=== PATIENT | female | born 2000 | race African-American/Black ===

== ENCOUNTER 2019-11-10 16:53 | Emergency (ER) | payer BC, SELFPAY ==
[2019-11-10 17:41] VITALS: BP 124/75; PULSE 79; RESP 14; TEMP 36.5; O2SAT 100
[2019-11-10 18:05] LABS: Basophils Percent Auto 0.6 % (0.2-1.2); Eosinophils Absolute Auto 0.1 K/mm3 (0-0.3); Eosinophils Percent Auto 1.2 % (0-4.4); Hematocrit 38.1 % (37.0-47.0); Hemoglobin 12.5 g/dL (12.0-15.0); Immature Granulocyte Absolute 0.01 K/mm3 (0.00-0.031); Immature Granulocyte Percent A 0.2 % (0-0.5); Lymphocytes Percent Auto 39.7 % (18.3-44.2); Mean Corpuscular HGB Conc 32.8 g/dl (32-36); Mean Corpuscular Hemoglobin 27.8 pg (26-34); Mean Corpuscular Volume 84.9 fl (80-100); Monocytes Absolute Auto 0.3 K/mm3 (0.1-0.6); Monocytes Percent Auto 4.7 % (2.6-8.5); Neutrophils Absolute Auto 3.5 K/mm3 (1.3-6.7); Neutrophils Percent Auto 53.6 % (45.5-73.1); Platelet Count Result 340 k/mm3 (150-375); Red Blood Count 4.49 M/mm3 (4.2-5.4); Red Cell Distribution Width 15.3 % (11.5-14.5); White Blood Count 6.6 K/mm3 (4.5-10.0)
--- NOTE | 2019-11-10 19:37 | PC.NURSE ---
first call for room assignment, pt did not respond.
[2019-11-10 20:38] VITALS: BP 114/62; PULSE 51
[2019-11-10 20:39] VITALS: PULSE 48
[2019-11-10 20:41] VITALS: BP 125/87; PULSE 55
--- NOTE | 2019-11-10 20:55 | ED.FEMALEGU ---
HPI - Female Genitourinary General Chief complaint: Vaginal Bleeding Stated complaint: having lots of blod clots Time Seen by Provider: 11/10/19 20:19 History of Present Illness HPI Narrative: Patient is a 19-year-old female who presents ER with heavy vaginal bleeding. Reports she has been passing clots the size of a nickel or larger over the last day. She soaks through a 12-hour pad just a couple of hours this evening. No lightheadedness or dizziness. Reports that she had similar symptoms in August and September and then had a normal period October 19. She is on control. Does not think that she is . No lower abdominal pain just her to cramping. Mother is present and is concerned about patient's constipation. She reports she goes in very small amounts over the last month and has been eating less due to being depressed from relationship that ended but she has recently stopped being depressed and has started eating better. No thoughts of harming herself or others. Related Data Allergies Allergy/AdvReac Type Severity Reaction Status Date / Time No Known Allergies Allergy Mild Verified 11/10/19 16:54 Review of Systems Review of Systems: All systems reviewed & are unremarkable except as noted in HPI and below Constitutional: Constitutional: Denies chills and Denies fatigue Gastrointestinal: Gastrointestinal: Denies abdominal pain, Reports constipation, Denies nausea and Denies vomiting Genitourinary: Genitourinary: Reports abnormal vaginal bleeding, Denies genital lesions, Denies pelvic pain and Denies vaginal discharge Psychiatric: Psychiatric: Denies anxiety and Reports depression (Resolved) PMFSH Past Medical History Medical History (Updated 11/10/19 @ 21:26 by Marcelo Lee MD) Healthy female adult Surgical History Surgical History (Updated 11/10/19 @ 21:11 by Marcelo Lee MD) Hx of tonsillectomy Social History Social History (Updated 11/10/19 @ 21:11 by Marcelo Lee MD) Smoking status: Never smoker Gender identity (if verbalized by the patient): Female Exam Narrative: Exam Narrative: GENERAL: Well-appearing, well-nourished, and in no acute distress. HEAD: Normocephalic, atraumatic. CHEST: Clear to auscultation. No respiratory distress. HEART: Regular rate and rhythm. Normal peripheral pulses. ABDOMEN: Soft, nontender, nondistended. Pelvic: Normal external genital exam. Mild amount of dark blood within the vaginal vault. No hemorrhage from the cervix. No cervical erythema or CMT. No discharge. EXTREMITIES: Normal range of motion. No edema. NEURO: Alert and oriented x3. Course Course Emergency Course: Informed of results and treatment plan. Discharge home. Vital Signs Vital signs: Vital Signs Temperature 97.7 F 11/10/19 17:41 Pulse Rate 79 11/10/19 17:41 Respiratory Rate 14 11/10/19 17:41 Blood Pressure 124/75 11/10/19 17:41 Pulse Oximetry 100 11/10/19 17:41 Temperature 97.7 F 11/10/19 17:41 Pulse Rate 55 L 11/10/19 20:41 Respiratory Rate 14 11/10/19 17:41 Blood Pressure 125/87 11/10/19 20:41 Pulse Oximetry 100 11/10/19 17:41 MDM - Female Genitourinary Lab Data Result diagrams: 11/10/19 17:58 Labs: Lab Results 11/10/19 11/10/19 Range/Units 17:58 17:58 WBC 6.6 (4.5-10.0) K/mm3 RBC 4.49 (4.2-5.4) M/mm3 Hgb 12.5 (12.0-15.0) g/dL Hct 38.1 (37.0-47.0) % MCV 84.9 (80-100) fl MCH 27.8 (26-34) pg MCHC 32.8 (32-36) g/dl RDW 15.3 H (11.5-14.5) % Plt Count 340 (150-375) k/mm3 MPV 9.0 (7.4-10.4) fl Immature Gran % (Auto) 0.2 (0-0.5) % Neut % (Auto) 53.6 (45.5-73.1) % Lymph % (Auto) 39.7 (18.3-44.2) % [place] % (Auto) 4.7 (2.6-8.5) % Eos % (Auto) 1.2 (0-4.4) % Baso % (Auto) 0.6 (0.2-1.2) % Lymph # (Auto) 2.60 (0.9-3.2) K/mm3 [place] # (Auto) 0.3 (0.1-0.6) K/mm3 Eos # (Auto) 0.1 (0-0.3) K/mm3 Baso # (Auto) 0.0 (0.0-0.1) K/mm3 Abs Pepper
[2019-11-10] MEDS: SODIUM CHLORIDE 0.9% IV 1,000 ML 999 ML IV CONT (21:06)
[2019-11-10 22:30] VITALS: BP 115/66; PULSE 51; RESP 16; O2SAT 100
== END 2019-11-10 22:40 | disposition home or self-care (01) ==
PROVIDERS: Emergency Provider Emergency Medicine
DX: N92.1 Excessive and frequent menstruation with irregular cycle (principal)
CPT/HCPCS: 36415; 81025; 85025; 86850; 86900; 86901; 96360; 99284; J7030

== ENCOUNTER 2022-03-23 07:58 | Emergency (ER) | payer BC, SELFPAY ==
[2022-03-23 08:05] VITALS: BP 95/61; PULSE 62; RESP 18; TEMP 36.6; O2SAT 100
[2022-03-23 08:09] VITALS: O2SAT 99
--- NOTE | 2022-03-23 08:43 | ED.GENADULT ---
HPI - General Adult General Chief complaint: Upper Respiratory Infection Stated complaint: sore throat and weakness that began this AM Time Seen by Provider: 03/23/22 08:21 Related Data Allergies Allergy/AdvReac Type Severity Reaction Status Date / Time No Known Allergies Allergy Mild Verified 03/23/22 07:59 [facility] Past Medical History Medical History (Updated 11/12/19 @ 00:00 by Telly Thrasher) Healthy female adult Surgical History Surgical History (Updated 11/10/19 @ 21:11 by Marcelo Lee MD) Hx of tonsillectomy Social History Social History (Updated 11/10/19 @ 21:11 by Marcelo Lee MD) Smoking status: Never smoker Gender identity (if verbalized by the patient): Female Course Vital Signs Vital signs: Vital Signs Temperature 97.9 F 03/23/22 08:05 Pulse Rate 62 03/23/22 08:05 Respiratory Rate 18 03/23/22 08:05 Blood Pressure 95/61 L 03/23/22 08:05 Pulse Oximetry 100 03/23/22 08:05 Oxygen Delivery Room Air 03/23/22 08:05 Temperature 97.9 F 03/23/22 08:05 Pulse Rate 62 03/23/22 08:05 Respiratory Rate 18 03/23/22 08:05 Blood Pressure 95/61 L 03/23/22 08:05 Pulse Oximetry 99 03/23/22 08:09 Oxygen Delivery Room Air 03/23/22 08:09 Medical Decision Making Vital Signs Vital Signs: Vital Signs Temperature 97.9 F 03/23/22 08:05 Pulse Rate 62 03/23/22 08:05 Respiratory Rate 18 03/23/22 08:05 Blood Pressure 95/61 L 03/23/22 08:05 Pulse Oximetry 100 03/23/22 08:05 Oxygen Delivery Room Air 03/23/22 08:05 Temperature 97.9 F 03/23/22 08:05 Pulse Rate 62 03/23/22 08:05 Respiratory Rate 18 03/23/22 08:05 Blood Pressure 95/61 L 03/23/22 08:05 Pulse Oximetry 99 03/23/22 08:09 Oxygen Delivery Room Air 03/23/22 08:09 Discharge Plan Discharge Prescriptions: No Action Midol 500-25 mg tablet 1 tablet PO QID PRN (Reason: menstrual pain) Qty: 20 0RF ibuprofen 800 mg tablet 800 mg PO TID Qty: 20 0RF docusate sodium [Colace] 100 mg capsule 100 mg PO DAILY Qty: 20 0RF Follow-up/Referrals: PHYSICIAN,TONGUE AND GROOVE MACHINE OPERATOR [Primary Care Provider] -
--- NOTE | 2022-03-23 08:54 | ED.GENADULT ---
HPI - General Adult General Chief complaint: Upper Respiratory Infection Stated complaint: sore throat and weakness that began this AM Time Seen by Provider: 03/23/22 08:21 History of Present Illness HPI narrative: 21-year-old well-appearing female presents with multiple complaints. Patient states that while waiting for the bus to go to work this morning she noticed body aches, sore throat, ear pain and feeling very tired . No sick contacts that she knows of. Patient is not vaccinated for COVID. Patient also admits that sometimes it sim when she pees. Patient is afebrile. Related Data Allergies Allergy/AdvReac Type Severity Reaction Status Date / Time No Known Allergies Allergy Mild Verified 03/23/22 07:59 Review of Systems Review of Systems: CONSTITUTIONAL: Denies fever, chills, or sweats. EYES: Denies visual changes, redness, or discharge. ENT: Denies rhinorrhea, congestion, sore throat, or otalgia. CARDIOVASCULAR: Denies chest pain, palpitations, or edema. RESPIRATORY: Denies cough or dyspnea. GASTROINTESTINAL: Denies abdominal pain, nausea, vomiting, or diarrhea. GENITOURINARY: Denies dysuria or hematuria. SKIN: Denies rash or itching. MUSCULOSKELETAL: Denies back pain, joint pain, or myalgia. NEUROLOGIC: Denies headache, numbness, or weakness. PSYCHIATRIC: Denies anxiety or depression. [facility] Past Medical History Medical History (Updated 11/12/19 @ 00:00 by Background Daemon) Healthy female adult Surgical History Surgical History (Updated 11/10/19 @ 21:11 by Marcelo Lee MD) Hx of tonsillectomy Social History Social History (Updated 11/10/19 @ 21:11 by Marcelo Lee MD) Smoking status: Never smoker Gender identity (if verbalized by the patient): Female Exam Narrative: GENERAL: Well-appearing, well-nourished, and in no acute distress. HEAD: Normocephalic, atraumatic. EYES: PERRLA and EOMI. ENT: Nares clear, no rhinorrhea or epistaxis. Mucous membranes moist. NECK: Supple. CHEST: Clear to auscultation. No respiratory distress. HEART: Regular rate and rhythm. No murmur heard. Normal peripheral pulses. ABDOMEN: Soft, nontender, nondistended, normal active bowel sounds. EXTREMITIES: Normal range of motion. No edema. SKIN: Warm, dry, no rash. NEURO: No focal deficits. Alert and oriented x3. PSYCH: Normal mood and affect. Course Vital Signs Vital signs: Vital Signs Temperature 97.9 F 03/23/22 08:05 Pulse Rate 62 03/23/22 08:05 Respiratory Rate 18 03/23/22 08:05 Blood Pressure 95/61 L 03/23/22 08:05 Pulse Oximetry 100 03/23/22 08:05 Oxygen Delivery Room Air 03/23/22 08:05 Temperature 97.9 F 03/23/22 08:05 Pulse Rate 62 03/23/22 08:05 Respiratory Rate 18 03/23/22 08:05 Blood Pressure 95/61 L 03/23/22 08:05 Pulse Oximetry 99 03/23/22 08:09 Oxygen Delivery Room Air 03/23/22 08:09 Medical Decision Making Vital Signs Vital Signs: Vital Signs Temperature 97.9 F 03/23/22 08:05 Pulse Rate 62 03/23/22 08:05 Respiratory Rate 18 03/23/22 08:05 Blood Pressure 95/61 L 03/23/22 08:05 Pulse Oximetry 100 03/23/22 08:05 Oxygen Delivery Room Air 03/23/22 08:05 Temperature 97.9 F 03/23/22 08:05 Pulse Rate 62 03/23/22 08:05 Respiratory Rate 18 03/23/22 08:05 Blood Pressure 95/61 L 03/23/22 08:05 Pulse Oximetry 99 03/23/22 08:09 Oxygen Delivery Room Air 03/23/22 08:09 Discharge Plan Discharge Prescriptions: No Action Midol 500-25 mg tablet 1 tablet PO QID PRN (Reason: menstrual pain) Qty: 20 0RF ibuprofen 800 mg tablet 800 mg PO TID Qty: 20 0RF docusate sodium [Colace] 100 mg capsule 100 mg PO DAILY Qty: 20 0RF Follow-up/Referrals: PHYSICIAN,RETAIL GROCER [Primary Care Provider] -
[2022-03-23 09:18] LABS: Appearance Urine Clear (Clear); Bilirubin Urine 1+ (Negative); Blood Urine 1+ (Negative); Glucose Urine UA Negative (Negative); Ketones Urine 1+ mg/dL (Negative); Leukocyte Esterase Ur Negative LEU/UL (Negative); Nitrate Urine Negative (Negative); Protein Urine 1+ mg/dL (Negative); Specific Grav Ur >= 1.030 (1.001-1.035); Urobilinogen Urine 0.2 mg/dL (<2.0); pH Urine 5.5 (5.0-9.0)
[2022-03-23 09:24] LABS: Bacteria Urine Trace /hpf; Mucus Urine Heavy /lpf; RBC Urine 0-2 /hpf (0-2); Squamous Epithelial Cell Urine Rare /hpf (Few); WBC Urine 0-3 /hpf
[2022-03-23 09:25] LABS: Add Urine Microscopic? YES; Color Urine Dark Yellow (Yellow)
[2022-03-23 09:53] VITALS: BP 103/53; PULSE 60; RESP 18; O2SAT 100
[2022-03-23 09:59] LABS: SARS-CoV-2 RNA PCR Negative
[2022-03-23 10:45] VITALS: BP 96/50; PULSE 60; RESP 18; O2SAT 99
== END 2022-03-23 10:45 | disposition home or self-care (01) ==
PROVIDERS: Emergency Provider Emergency Medicine
DX: B34.9 Viral infection, unspecified (principal); Z20.822 Contact with and (suspected) exposure to COVID-19; Z28.310 Unvaccinated for COVID-19
CPT/HCPCS: 81001; 99283; U0003; U0005

== ENCOUNTER 2022-04-07 05:18 | Emergency (ER) | payer BC, SELFPAY ==
--- NOTE | ~2022-04-07 | XR_ITS ---
EXAMINATION: XR chest 1V portable DATE: 04/07/2022 06:55 INDICATION: Cough TECHNIQUE: frontal view of the chest was obtained. COMPARISON: None FINDINGS: The lungs are clear with no focal airspace opacities, pulmonary edema, pleural effusion or pneumothor ax. The cardiomediastinal silhouette is normal. Visualized bones and soft tissues are unremarkable. IMPRESSION: 1. Normal chest radiograph. Reviewed, dictated and finalized at location A. [employer] SYSTEM[employer] MANAGER IMPRESSION: 1. Normal chest radiograph.
[2022-04-07 05:22] VITALS: BP 101/62; PULSE 95; RESP 18; TEMP 36.1; O2SAT 99
--- NOTE | 2022-04-07 05:55 | ED.GENADULT ---
HPI - General Adult General Chief complaint: Headache Stated complaint: Headache Time Seen by Provider: 04/07/22 05:33 History of Present Illness HPI narrative: Patient is a 21-year-old female that presents emerged department with a chief complaint of headache. Patient reports that she was seen in the emergency department several days ago for cough body aches and generalized malaise had a COVID test that was negative at that time and diagnosed with a viral illness. The patient states that today she was on her way to work and noticed that she started developing headache. Patient states that several months ago she struck her head and is concerned that this may be the cause of her headaches. The patient reported no previous head injury she had no loss of consciousness reports no focal neurological deficit after the injury. The patient reports that today she has been continually coughing has been nonproductive patient denies photophobia Related Data Allergies Allergy/AdvReac Type Severity Reaction Status Date / Time No Known Allergies Allergy Mild Verified 04/07/22 05:25 Review of Systems Review of Systems: A 10 system review of systems was completed on the patient and is negative except for what is stated in the HPI. Nursing and ancillary documentation was reviewed. [facility] Past Medical History Medical History Healthy female adult Surgical History Surgical History Hx of tonsillectomy Social History Social History Smoking status: Never smoker Gender identity (if verbalized by the patient): Female Exam Narrative: GENERAL: Well-appearing, well-nourished, and in no acute distress. HEAD: Normocephalic, atraumatic. EYES: PERRLA and EOMI. ENT: Nares clear, no rhinorrhea or epistaxis. Mucous membranes moist. NECK: Supple. No nuchal rigidity or meningeal sign CHEST: Clear to auscultation. No respiratory distress. HEART: Regular rate and rhythm. No murmur heard. Normal peripheral pulses. ABDOMEN: Soft, nontender, nondistended, normal active bowel sounds. EXTREMITIES: Normal range of motion. No edema. SKIN: Warm, dry, no rash. NEURO: No focal deficits. Alert and oriented x3. PSYCH: Normal mood and affect. Course Vital Signs Vital signs: Vital Signs Temperature 36.1 C L 04/07/22 05:22 Pulse Rate 95 04/07/22 05:22 Respiratory Rate 18 04/07/22 05:22 Blood Pressure 101/62 04/07/22 05:22 Pulse Oximetry 99 04/07/22 05:22 Oxygen Delivery Room Air 04/07/22 05:22 Temperature 36.1 C L 04/07/22 05:22 Pulse Rate 95 04/07/22 05:22 Respiratory Rate 18 04/07/22 05:22 Blood Pressure 101/62 04/07/22 05:22 Pulse Oximetry 99 04/07/22 05:22 Oxygen Delivery Room Air 04/07/22 05:22 Medical Decision Making Vital Signs Vital Signs: Vital Signs Temperature 36.1 C L 04/07/22 05:22 Pulse Rate 95 04/07/22 05:22 Respiratory Rate 18 04/07/22 05:22 Blood Pressure 101/62 04/07/22 05:22 Pulse Oximetry 99 04/07/22 05:22 Oxygen Delivery Room Air 04/07/22 05:22 Temperature 36.1 C L 04/07/22 05:22 Pulse Rate 95 04/07/22 05:22 Respiratory Rate 18 04/07/22 05:22 Blood Pressure 101/62 04/07/22 05:22 Pulse Oximetry 99 04/07/22 05:22 Oxygen Delivery Room Air 04/07/22 05:22 Lab Data Labs: Lab Results 04/07/22 04/07/22 Range/Units 05:49 05:49 Influenza A (RT-PCR) Negative (Negative) Influenza B (RT-PCR) Negative (Negative) SARS-CoV-2 RNA (RT-PCR) Negative Group A Strep (PCR) Not detected (Negative) Discharge Plan Discharge Clinical Impression: Headache, Acute viral syndrome Patient Disposition: Home, Self-Care Condition: Stable Instructions: Antibiotic Form, Acute Headache (ED), Viral Syndrome (ED) Prescriptions: No A
[2022-04-07] MEDS: PROCHLORPERAZINE EDISYLATE 10 MG/2 ML VIAL IV PUSH (06:15)
[2022-04-07] MEDS: KETOROLAC 30 MG/ML VIAL (*BKC) IV PUSH (06:16)
[2022-04-07] MEDS: diphenhydrAMINE HCl INJ 50 MG/ML VIAL IV PUSH (06:16)
--- NOTE | 2022-04-07 06:23 | PC.NURSE ---
Pt denies cough today, states no nausea today, and during assessment reports headache now 6/10 and improving prior to medication. ERP notified.
[2022-04-07 06:40] LABS: Strep Group A RT-PCR NOT DETECTED (Negative)
[2022-04-07 06:50] LABS: Influenza A QL RT-PCR Negative (Negative); Influenza B QL RT-PCR Negative (Negative); SARS-CoV-2 RNA PCR Negative
== END 2022-04-07 07:03 | disposition home or self-care (01) ==
PROVIDERS: Emergency Provider Emergency Medicine
DX: B34.9 Viral infection, unspecified (principal); R51.9 Headache, unspecified; Z20.822 Contact with and (suspected) exposure to COVID-19
CPT/HCPCS: 71045; 87636; 87651; 96374; 96375; 99284; J0780; J1200; J1885

== ENCOUNTER 2022-12-09 01:07 | Emergency (ER) | payer BC, SELFPAY ==
[2022-12-09 01:17] VITALS: BP 113/83; PULSE 114; RESP 16; TEMP 37.1; O2SAT 100
[2022-12-09 02:15] LABS: Basophils Percent Auto 0.2 % (0.2-1.2); Eosinophils Absolute Auto 0.1 K/mm3 (0-0.3); Eosinophils Percent Auto 1.4 % (0-4.4); Hematocrit 36.5 % (37.0-47.0); Hemoglobin 11.8 g/dL (12.0-15.0); Immature Granulocyte Absolute 0.02 K/mm3 (0.00-0.031); Immature Granulocyte Percent A 0.2 % (0-0.5); Lymphocytes Absolute Auto 3.21 K/mm3 (0.9-3.2); Lymphocytes Percent Auto 38.8 % (18.3-44.2); Mean Corpuscular HGB Conc 32.3 g/dl (32-36); Mean Corpuscular Hemoglobin 28.9 pg (26-34); Mean Corpuscular Volume 89.5 fl (80-100); Mean Platelet Volume 8.6 fl (7.4-10.4); Monocytes Absolute Auto 0.5 K/mm3 (0.1-0.6); Monocytes Percent Auto 5.4 % (2.6-8.5); Neutrophils Absolute Auto 4.5 K/mm3 (1.3-6.7); Platelet Count Result 310 k/mm3 (150-375); Red Blood Count 4.08 M/mm3 (4.2-5.4); Red Cell Distribution Width 14.5 % (11.5-14.5); White Blood Count 8.3 K/mm3 (4.5-10.0)
[2022-12-09 02:22] LABS: Alanine Aminotransferase 16 U/L (6-35); Albumin Level 4.4 g/dL (3.5-5.1); Alkaline Phosphatase 102 U/L (38-126); Anion Gap 9 mmol/L (8-16); Aspartate Amino Transferase 21 U/L (14-36); Bilirubin,Total 0.3 mg/dL (0.2-1.3); Blood Urea Nitrogen 16 mg/dL (7-17); Calcium 10.7 mg/dL (8.4-10.2); Carbon Dioxide 22 mmol/L (22-30); Chloride 104 mmol/L (98-107); Estimated CRCL calculation 93 ml/min; Estimated Glomerular Filt Rate > 60; Glucose 83 mg/dL (65-110); Potassium 3.5 mmol/L (3.4-5.0); Sodium 135 mmol/L (137-145)
[2022-12-09 02:23] LABS: Ethanol < 10 mg/dL (<10)
[2022-12-09 02:26] LABS: Acetaminophen < 10 ug/mL (10-30); Salicylate < 1.0 mg/dL (2-20)
[2022-12-09 02:29] LABS: Appearance Urine Cloudy (Clear); Bacteria Urine 4+ /hpf; Bilirubin Urine Negative (Negative); Blood Urine 3+ (Negative); Color Urine Yellow (Yellow); Glucose Urine UA Negative (Negative); Ketones Urine 1+ mg/dL (Negative); Leukocyte Esterase Ur 3+ LEU/UL (Negative); Need Manual Microscopic Reviewed; Nitrate Urine Negative (Negative); Protein Urine 1+ mg/dL (Negative); RBC Urine 21-50 /hpf (0-2); Squamous Epithelial Cell Urine Moderate /hpf (Few); WBC Urine >100 /hpf; pH Urine 5.5 (5.0-9.0)
[2022-12-09 02:30] LABS: Amphetamine Screen Urine Negative (Negative); Barbiturate Screen Urine Negative (Negative); Benzodiazepines Screen Urine Negative (Negative); Cannabinoid Screen Urine Positive (Negative); Cocaine Screen Urine Negative (Negative); Methadone Screen Urine Negative (Negative); Opiate Screen Urine Negative (Negative); Phencyclidine Screen Urine Negative (Negative)
[2022-12-09 02:31] LABS: Add Urine Microscopic? YES; Specific Grav Ur 1.038 (1.001-1.035)
--- NOTE | 2022-12-09 03:23 | ED.GENADULT ---
HPI - General Adult General Chief complaint: Psychiatric Symptoms Stated complaint: SI Time Seen by Provider: 12/09/22 01:40 Source: patient and RN notes reviewed Mode of arrival: ambulatory Limitations: no limitations History of Present Illness HPI narrative: This is a 22 year old female who presents for psychiatric evaluation. Patient states that yesterday her mother called the police on her because that got into an argument. She was arrest for an outstanding warrant and she was released yesterday at 1 pm. She states after she was released, she went back to her mother's house to get her work badge. She reports that her mother would not answer the door or the phone, and she thought she was in the living room. Patient states she was knocking on the door and her mother would not answer. She states then she walked away to go to her friend's house. Her friend did not answer so she went back to her mother's house. She reports on return to her mother's house, she noticed that door was open and window was broken. She thinks she broke the door down and broke the window but she does not remember. She states she smoked her vape pen and then had panic attack so she called EMS. She reports history in the past of going to a psych facility for having black out spells in which she does remember doing destructive things. She does not remember her diagnosis. She denies SI . She states she is angry at people but does not have place to harm anyone. Related Data Allergies Allergy/AdvReac Type Severity Reaction Status Date / Time No Known Allergies Allergy Mild Verified 04/07/22 05:25 Review of Systems Constitutional: Constitutional: Denies weakness Cardiovascular: Cardiovascular: Denies syncope, Denies rapid heart rate, Denies irregular heart rhythm, Denies leg edema and Denies dyspnea Respiratory: Respiratory: Denies chest congestion, Denies hemoptysis, Denies excessive phlegm production and Denies dyspnea Gastrointestinal: Gastrointestinal: Denies abdominal pain, Denies hematochezia, Denies diarrhea and Denies vomiting Genitourinary: Genitourinary: Denies hematuria and Denies dysuria Musculoskeletal: Musculoskeletal: Denies joint swelling, Denies loss of height and Denies muscle weakness Neurologic: Denies syncope, Denies focal weakness and Denies weakness PMFSH Past Medical History Medical History Healthy female adult Surgical History Surgical History Hx of tonsillectomy Social History Social History (Updated 12/09/22 @ 03:31 by Sara Tolliver MD) Tobacco type: e-cigarettes/vaping Substance use type: unknown Gender identity (if verbalized by the patient): Female Exam Const: General: no acute distress and alert Nutritional Appearance: well nourished Orientation/consciousness: patient oriented x3 Limitations: no limitations HENMT: Head: normal to inspection Face and sinus: normal facial exam Eyes: EOM: EOMs intact bilaterally Neck: Neck: normal visual inspection Chest: Chest palpation & inspection: normal inspection of the chest Resp: Effort & Inspection: normal respiratory effort Auscultation: clear to auscultation bilaterally Cardio: Rate: regular rate Rhythm: regular rhythm Heart sounds: no murmurs GI: GI Palp: Yes Soft to palpation, No Tenderness to palpation present (GI), No Guarding due to palpation present (GI) and No Rigid due to palpation Auscultation: normal bowel sounds Back/Spine/Pelvis: Back: no CVA tenderness Skin: General skin exam: normal color Rashes: no rashes Wounds: no wounds Neuro: General: patient oriented x3, moves all extremities and CN's II-XI intact bilaterally Extrem: General: normal to inspection Psych: Mental Status: mental status grossly normal Affect: normal affect Attitude: cooperative Course Reevaluation(s) Reevaluation #1: PAtient was assessed
[2022-12-09 03:44] VITALS: BP 110/76; PULSE 98; RESP 16; TEMP 37.1; O2SAT 98
[2022-12-09 05:04] LABS: Influenza A QL RT-PCR Negative (Negative); Influenza B QL RT-PCR Negative (Negative); RSV RNA, RT-PCR Negative (Negative); SARS-CoV-2 RNA PCR Negative (Negative)
--- NOTE | 2022-12-09 05:19 | PC.NURSE ---
pt is resting. pt still denies si/hi. pt denies pain
[2022-12-09 05:49] VITALS: BP 112/84; PULSE 72; RESP 18; O2SAT 100
[2022-12-09 07:10] VITALS: BP 118/70; PULSE 82; RESP 16; TEMP 36.8; O2SAT 98
[2022-12-09 08:00] VITALS: BP 120/84; PULSE 80; RESP 16; TEMP 36.7; O2SAT 99
--- NOTE | 2022-12-09 10:31 | PCCCNOTE ---
Met wit patient in the family services room for [facility] resources. Patient has no where to go, older sister is not responding, mother had given two week notice and she is locked out and she can not stay with younger brother as he is being followed by social work. Patient is using our sculpture conservator, her phone only will work with wifi calling. Patient does not have any friends to call for a place to stay or enough money for hotel. [facility] resources explained, called to [facility] and left a vm mail message for return call to patient at [phone] and/or care coordination. Phone call to [facility], requested place in queue to be held for return call to care coordination. Phone call to [facility], no answer, left a message, called to [facility] per home office representative must go through [facility]. Called to [facility] and per message must go through [facility]. Called to [facility] [facility], spoke with Sister Jackelin, Sister Jackelin spoke with patient directly. This team primary care physician spoke with the sister directly after and she confirms a spot for 3:30 pm today. Address confirmed [address]; [place], [place]. Patient provided resources with notes and the confirmed place for today at 3:30/ [facility]. Patient states that she does have some kerr but does not confirm how much. Patient is comfortable with riding the bus and does that often for her transportation. Patient plans to ride bus during day while awaiting opening of the penitentiary. She states that she needs to get her license from one of the bus stations and plans to go to [facility]. On resource list, blast furnace check[employer] cab company phone number written down resources for getting to [facility] [facility]. Patient does not need hard copies of the bus timetables as she has it on her phone. Verbalizes understanding and does not have any questions regarding written resources. Patient has eaten and declines any additional beverages.
== END 2022-12-09 08:52 | disposition home or self-care (01) ==
PROVIDERS: Emergency Provider General Practice
DX: F41.9 Anxiety disorder, unspecified (principal); Z20.822 Contact with and (suspected) exposure to COVID-19
CPT/HCPCS: 36415; 80053; 80307; 81001; 81025; 84443; 85025; 87086; 87088; 87637; 99284

== ENCOUNTER 2023-04-07 09:38 | Emergency (ER) | payer BC, SELFPAY ==
--- NOTE | ~2023-04-07 | XR_ITS ---
XR ankle LT min 3V 04/07/2023 11:18 Indication: Twisting injury with lateral ankle pain Procedure: 4 views left ankle Comparison: No prior studies for comparison. Findings: There is a minimally displaced oblique distal fibular metaphyseal fracture. Ankle mortise i ntact. Talar dome is normal. Mild lateral soft tissue swelling. No foreign bodies. Impression: 1: Minimally displaced oblique distal fibular metaphyseal fracture. Reviewed, dictated and finalized at location L. E STYLIST Impression: 1: Minimally displaced oblique distal fibular metaphyseal fracture.
[2023-04-07 10:09] VITALS: BP 114/66; PULSE 85; RESP 15; TEMP 36.6; O2SAT 100
--- NOTE | 2023-04-07 11:33 | ED.LOWEXIN ---
HPI - Extremity Injury (Lower) General Chief Complaint: Extremity Injury, Lower Stated Complaint: L ANKLE INJURY Time Seen by Provider: 04/07/23 11:02 Source: patient Mode of arrival: ambulatory Limitations: no limitations History of Present Illness HPI Narrative: Patient is a 22-year-old female who presents the ED with report of left ankle pain. Patient reports she tripped and fell while taking her dog out 5 days ago. She states her left ankle rolled inward. She complains of pain to her left lateral ankle since then. She has been able to bear some weight, but notes that she has been limping and has pain with ambulation. Reports some swelling. Denies numbness or tingling. Denies any other injuries. Related Data Allergies Allergy/AdvReac Type Severity Reaction Status Date / Time No Known Allergies Allergy Mild Verified 04/07/22 05:25 Review of Systems Review of Systems: CONSTITUTIONAL: Denies fever, chills, or sweats. MUSCULOSKELETAL: See HPI. NEUROLOGIC: Denies tingling, numbness, or weakness. All systems reviewed & are unremarkable except as noted in HPI and below PMFSH Past Medical History Medical History Healthy female adult Surgical History Surgical History Hx of tonsillectomy Social History Social History Tobacco type: e-cigarettes/vaping Substance use type: unknown Gender identity (if verbalized by the patient): Female Exam Narrative: GENERAL: Well appearing, obese with BMI of 31.4, non-toxic, in no acute distress. HEAD: Normocephalic, atraumatic. NECK: Supple. No adenopathy, no masses. RESPIRATORY: Airway patent, respirations nonlabored. CARDIOVASCULAR: Regular rate and rhythm without murmurs, rubs, or gallops. Pedal pulses 2+ and equal bilaterally. MUSCULOSKELETAL: Moves all extremities. Limited dorsi/plantar flexion of left ankle due to pain. Tenderness around posterior distal L lateral malleoli. Moderate swelling noted to lateral left ankle. No significant tenderness along the metatarsals. Sensation intact. Good capillary refill. SKIN: Warm, dry, normal color. No rashes. NEURO: A&O X3. Speech clear. Cranial nerves II-XII grossly intact. No ataxic movements. PSYCHIATRIC: Appropriate mood and affect. Normal interaction. Course Vital Signs Vital signs: Vital Signs Temperature 97.8 F 04/07/23 10:09 Pulse Rate 85 04/07/23 10:09 Respiratory Rate 15 04/07/23 10:09 Blood Pressure 114/66 04/07/23 10:09 Pulse Oximetry 100 04/07/23 10:09 Temperature 97.8 F 04/07/23 10:09 Pulse Rate 85 04/07/23 10:09 Respiratory Rate 15 04/07/23 10:09 Blood Pressure 114/66 04/07/23 10:09 Pulse Oximetry 100 04/07/23 10:09 MDM - Extremity Injury (Lower) MDM Narrative Medical decision making narrative: Patient?s injury is consistent with musculoskeletal etiology. No signs of neurologic or vascular compromise on physical examination. Compartments are soft without signs of compartment syndrome. XR showing distal fibular fracture. Pain is consistent with exam and injury. Patient is felt to be stable for discharge home and further outpatient management and treatment. Discussed these findings with patient. Patient placed in short leg posterior splint. Will be provided with crutches. Advised to follow-up with orthopedics for further evaluation. Patient did not want anything for pain in the ED. She has not required pain medication over the last couple of days. I advised to utilize Tylenol and ibuprofen if needed, rice therapy. Discussed strict return precautions. Discharged in stable condition. Medical Records Attestation: I reviewed the patient's medical records. Imaging Data Attestation: I personally reviewed and interpreted this imaging study as follows: Radiologist's fritzi
[2023-04-07 12:32] VITALS: BP 126/78; PULSE 75; RESP 17; O2SAT 98
== END 2023-04-07 12:32 | disposition home or self-care (01) ==
LOC: ANHED 11:39
PROVIDERS: Emergency Provider Physician Assistant
DX: S89.392A Other physeal fracture of lower end of left fibula, initial encounter for closed fracture (principal); F17.290 Nicotine dependence, other tobacco product, uncomplicated; W01.0XXA Fall on same level from slipping, tripping and stumbling without subsequent striking against object, initial encounter; Y93.K1 Activity, walking an animal
CPT/HCPCS: 29515; 73610; 99284

== ENCOUNTER 2023-04-24 15:53 | Emergency (ER) | payer BC, SELFPAY ==
--- NOTE | ~2023-04-24 | XR_ITS ---
XR ankle LT min 3V DATE: 04/24/2023 20:05 INDICATION: Left ankle pain TECHNIQUE: 3 views COMPARISON: None FINDINGS: There is a spiral fracture of the lateral malleolus with minimal displacement and no angula tion. There is minimal lateral subluxation at the tibiotalar joint. No medial or posterior malleolar fractures are noted. IMPRESSION: Spiral minimally displaced fracture of the lateral malleolus Minimal lateral subluxation of the tibiotalar joint Reviewed, dictated and finalized at location A. TER TOPOGRAPHICAL
[2023-04-24 15:55] VITALS: BP 114/49; PULSE 83; RESP 20; TEMP 36.3; O2SAT 100
--- NOTE | 2023-04-24 19:56 | ED.EXTPRO ---
HPI - Extremity Problem General Chief complaint: Extremity Problem,Nontraumatic <Michelle Dela Cruz PA-C - Last Filed: 04/24/23 21:30> Stated complaint: Request ReSplint, Left Foot <Michelle Dela Cruz PA-C - Last Filed: 04/24/23 21:30> Time Seen by Provider: 04/24/23 19:34 <Michelle Dela Cruz PA-C - Last Filed: 04/24/23 21:30> Source: patient <Michelle Dela Cruz PA-C - Last Filed: 04/24/23 21:30> Mode of arrival: ambulatory <Michelle Dela Cruz PA-C - Last Filed: 04/24/23 21:30> Limitations: no limitations <Michelle Dela Cruz PA-C - Last Filed: 04/24/23 21:30> History of Present Illness HPI Narrative: This is a 22 year old female that presents to the ER for left ankle pain. Reports she sustained an ankle fracture about 3 weeks ago. She has not been able to follow up with orthopedics yet. Her splint got wet today, she would like a new one. Denies numbness. <Michelle Dela Cruz PA-C - Last Filed: 04/24/23 21:30> Related Data Allergies/Adverse reactions: Allergies Allergy/AdvReac Type Severity Reaction Status Date / Time No Known Allergies Allergy Mild Verified 04/24/23 19:36 <Michelle Dela Cruz PA-C - Last Filed: 04/24/23 21:30> Review of Systems Review of Systems: CONSTITUTIONAL: Denies fever MUSCULOSKELETAL: Reports joint pain, and myalgia. NEUROLOGIC: Denies numbness <Michelle Dela Cruz PA-C - Last Filed: 04/24/23 21:30> All systems reviewed & are unremarkable except as noted in HPI and below <Michelle Dela Cruz PA-C - Last Filed: 04/24/23 21:30> PMFSH Past Medical History Medical History: Medical History Healthy female adult <Michelle Dela Cruz PA-C - Last Filed: 04/24/23 21:30> Surgical History Surgical History: Surgical History Hx of tonsillectomy <Michelle Dela Cruz PA-C - Last Filed: 04/24/23 21:30> Social History Social History: Social History Tobacco type: e-cigarettes/vaping Substance use type: unknown Gender identity (if verbalized by the patient): Female <Michelle Dela Cruz PA-C - Last Filed: 04/24/23 21:30> Exam Narrative: GENERAL: Well-appearing, well-nourished, and in no acute distress. HEAD: Normocephalic, atraumatic. EYES: EOMI. EXTREMITIES: Normal range of motion. No edema or erythema. Normal DP pulse. Normal sensation SKIN: Warm, dry, no rash. NEURO: No focal deficits. Alert and oriented x3. PSYCH: Normal mood and affect <Michelle Dela Cruz PA-C - Last Filed: 04/24/23 21:30> Course Course Emergency Course: Patient updated on workup and agrees with plan of care <Michelle Dela Cruz PA-C - Last Filed: 04/24/23 21:30> PLATE FURNACE OPERATOR/PA Physician Supervision For this patient encounter, I reviewed the PLATE FURNACE OPERATOR or PA documentation, treatment plan, and medical decision making; and I had [id number] time with this patient. <Jeremy Dc MD - Last Filed: 04/25/23 02:00> Vital Signs Vital signs: Vital Signs Temperature 97.4 F L 04/24/23 15:55 Pulse Rate 83 04/24/23 15:55 Respiratory Rate 20 04/24/23 15:55 Blood Pressure 114/49 L 04/24/23 15:55 Pulse Oximetry 100 04/24/23 15:55 Oxygen Delivery Room Air 04/24/23 15:55 Temperature 97.4 F L 04/24/23 15:55 Pulse Rate 82 04/24/23 21:36 Respiratory Rate 18 04/24/23 21:36 Blood Pressure 132/88 04/24/23 21:36 Pulse Oximetry 98 04/24/23 21:36 Oxygen Delivery Room Air 04/24/23 15:55 <Michelle Dela Cruz PA-C - Last Filed: 04/24/23 21:30> Vital Signs Temperature 97.4 F L 04/24/23 15:55 Pulse Rate 83 04/24/23 15:55 Respiratory Rate 20 04/24/23 15:55 Blood Pressure 114/49 L 04/24/23 15:55 Pulse Oximetry 100 04/24/23 15:55 Oxygen Delivery Room Air 04/24/23 15:55 Temperature 97.4 F L 04/24/23 15:55 Pulse Rate 82 04/24/23 21:36 Respiratory
[2023-04-24 21:36] VITALS: BP 132/88; PULSE 82; RESP 18; O2SAT 98
== END 2023-04-24 21:36 | disposition home or self-care (01) ==
PROVIDERS: Emergency Provider Physician Assistant
DX: S82.62XD Displaced fracture of lateral malleolus of left fibula, subsequent encounter for closed fracture with routine healing (principal); F17.290 Nicotine dependence, other tobacco product, uncomplicated; X58.XXXD Exposure to other specified factors, subsequent encounter
CPT/HCPCS: 29515; 73610; 99284